=== PATIENT | female | born 1995 | race Caucasian/White ===

== ENCOUNTER 2021-01-27 01:10 | Emergency (ER) | payer SELFPAY ==
--- OUTSIDE RECORDS SUMMARY | 2021-01-27 01:13 | XMS REPORT | Continuity of Care Document ---
:1995 Author Organization [facility] t Address [address] [place] [address] Care Team Providers Name Role Phone Pcp, Does Not Have A Attending Clinician Problems This patient has no known problems. Allergies, Adverse Reactions, Alerts This patient has no known allergies or adverse reactions. Medications This patient has no known medications. Procedures This patient has no known procedures. Encounters Start End Encounter Admission Attending Care Care Encounter Source Date/Time Date/Time Type Type Clinicians Facility Department ID 2019-10-23 2019-10-23 Telephone PcpPAVEL [id number] 00:00:00 00:00:00 Patient Health [id number] Does Not [place] [id number] Have A Professio [phone] nal [address] 2019-10-22 2019-10-22 Nurse PcpDB [id number] 00:00:00 00:00:00 Triage Patient ASMITA [id number] Does Not [facility] [id number] Have A [phone] [id number] Results This patient has no known results.
--- NOTE | 2021-01-27 02:18 | EDPHYS ---
Physician Documentation [facility] Name: Rosangela Govea Age: 25 yrs Sex: Female : 1995 Arrival Date: 01/27/2021 Time: 01:11 Bed 13 Private MD: ED Physician Medhat Padron HPI: 01/27 02:08 This 25 yrs old Female presents to ER via Ambulatory with complaints of Fall kingsley Injury - THINKS SHE BROKE HER RIGHT ARM. 02:08 Details of fall: The patient fell from an upright position, while walking. Onset: The kingsley symptoms/episode began/occurred just prior to arrival. Associated injuries: The patient sustained right bicep and right tricep, decreased range of motion, painful injury. Severity of symptoms: At their worst the symptoms were mild, in the emergency department the symptoms are unchanged. The patient has not experienced similar symptoms in the past. 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 - Social history:: Smoking status: Patient reports the use of cigarette tobacco products, denies chronic smoking, but will smoke occasionally, Patient uses alcohol, on a daily basis. ROS: 02:10 Constitutional: Negative for fever, chills, and weight loss, Eyes: Negative for injury, kingsley pain, redness, and discharge, ENT: Negative for injury, pain, and discharge, Neck: Negative for injury, pain, and swelling, Cardiovascular: Negative for chest pain, palpitations, and edema, Respiratory: Negative for shortness of breath, cough, wheezing, and pleuritic chest pain, Abdomen/GI: Negative for abdominal pain, nausea, vomiting, diarrhea, and constipation, Back: Negative for injury and pain, : Negative for injury, bleeding, discharge, and swelling, Skin: Negative for injury, rash, and discoloration, Neuro: Negative for headache, weakness, numbness, tingling, and seizure, Psych: Negative for depression, anxiety, suicide ideation, homicidal ideation, and hallucinations, Allergy/Immunology: Negative for hives, rash, and allergies, Endocrine: Negative for neck swelling, polydipsia, polyuria, polyphagia, and marked weight changes, Hematologic/Lymphatic: Negative for swollen nodes, abnormal bleeding, and unusual bruising. 02:10 MS/extremity: Positive for injury or acute deformity, decreased range of motion, of the right bicep and right tricep. Exam: 02:10 Constitutional: This is a well developed, well nourished patient who is awake, alert, kingsley and in no acute distress. Head/Face: Normocephalic, atraumatic. Eyes: Pupils equal round and reactive to light, extra-ocular motions intact. Lids and lashes normal. Conjunctiva and sclera are non-icteric and not injected. Cornea within normal limits. Periorbital areas with no swelling, redness, or edema. ENT: Nares patent. No nasal discharge, no septal abnormalities noted. Tympanic membranes are normal and external auditory canals are clear. Oropharynx with no redness, swelling, or masses, exudates, or evidence of obstruction, uvula midline. Mucous membranes moist. Neck: Trachea midline, no thyromegaly or masses palpated, and no cervical lymphadenopathy. Supple, full range of motion without nuchal rigidity, or vertebral point tenderness. No Meningismus. Chest/axilla: Normal chest wall appearance and motion. Nontender with no deformity. No lesions are appreciated. Cardiovascular: Regular rate and rhythm with a normal S1 and S2. No gallops, murmurs, or rubs. Normal PMI, no JVD. No pulse deficits. Respiratory: Lungs have equal breath sounds bilaterally, clear to auscultation and percussion. No rales, rhonchi or wheezes noted. No increased work of breathing, no retractions or nasal flaring. Abdomen/GI: Soft, non-tender, with normal bowel sounds. No distension or tympany. No guarding or rebound. No evidence of tenderness throughout. Back: No spinal tenderness. No costovertebral tenderness. Full range of motion. Skin: Warm, dry with normal turgor. Normal color with no rashes, no lesions, and no evidence of cellulitis. Neuro: Awake and alert, GCS 15, oriented to person, place, time, and situation. Cranial nerves II-XII grossly intact. Motor strength 5/5 in all extremities. Sensory grossly intact. Cerebellar exam normal. Normal gait. Psych: Awake, alert, with orientation to person, place and time. Behavior, mood, and affect are within normal limits. 02:10 Musculoskeletal/extremity: Circulation is intact in all extremities. Sensation intact. Compartment Syndrome exam of affected extremity: is normal. DVT Exam: no swelling, no appreciated bluish discoloration, no erythema, no increased warmth, pain, tenderness. Vital Signs: 01:22 BP 128 / 83; Pulse 112; Resp 20; Temp 99.2(O); Pulse Ox 98% on R/A; Weight 74.84 kg bb (R); Height 5 ft. 4 in. (162.56 cm) (R); Pain 7/10; 01:22 Body Mass Index 28.32 (74.84 kg, 162.56 cm) bb MDM: 01:40 Patient medically screened. kingsley 02:12 Differential diagnosis: closed fracture, contusion, tendonitis. Differential diagnosis: kingsley contusion, fracture, multiple trauma, sprain, strain. Data reviewed: vital signs, nurses notes, radiologic studies, plain films. Data interpreted: quality assurance monitor chassis: rate is 112 beats/min, rhythm is regular, Pulse oximetry: on room air is 98 %. Test interpretation: by ED physician or midlevel provider: plain radiologic studies. Counseling: I had a detailed discussion with the patient and/or guardian regarding: the historical points, exam findings, and any diagnostic results supporting the discharge/admit diagnosis, lab results, radiology results, the need for outpatient follow up, for definitive care, a family practitioner, a orthopedic surgeon. 01/27 01:26 Order name: XRAY Humerus RIGHT; Complete Time: 14:40 01/27 02:08 Order name: Sling kingsley 01/27 02:08 Order name: Ice pack kingsley 01/27 02:14 Order name: Misc. Order: rings off right hand kingsley Administered Medications: No medications were administered Disposition Summary: 01/27/21 02:17 Discharge Ordered Location: Home kingsley Problem: new kingsley Symptoms: have improved kingsley Condition: Stable kingsley Diagnosis - Fall (on) (from) unspecified stairs and steps kingsley - Contusion of right upper arm kingsley Followup: kingsley - With: Private Physician - When: 2 - 3 days - Reason: Recheck today's complaints, Continuance of care, Re-evaluation by your physician Followup: kingsley - With: Kush Carpenter MD - When: 2 - 3 days - Reason: Recheck today's complaints, Re-evaluation by your physician Discharge Instructions: - Discharge Summary Sheet kingsley - Alcohol Intoxication kingsley - Contusion kingsley - Fall Prevention in the Home, Adult kingsley - Alcohol Intoxication, [id number] kingsley - Contusion, Fsdr-wq-Mcle kingsley Forms: - Medication Reconciliation Form kingsley - Thank You Letter kingsley - Antibiotic Education kingsley - Prescription Opioid Use kingsley Prescriptions: - Ibuprofen 600 mg Oral Tablet - take 1 tablet by ORAL route every 6 hours As needed take with food; 20 tablet; kingsley Refills: 0, Product Selection Permitted Signatures: Dispatcher [employer] EDMS Sheri Dotson, CROZER-C RAYMUNDO-Medhat Pérez MD MD cha Ballard, Brenda, RN RN bb
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
[2021-01-27 02:35] VITALS: BP 128/83; TEMP 99.2; O2SAT 98
--- NOTE | 2021-01-27 09:02 | RAD REPORT ---
EXAM DESCRIPTION: RAD - Humerus Right - 01/27/2021 2:25 am CLINICAL HISTORY: PAIN, fall COMPARISON: No comparisons FINDINGS: No fracture is identified. There is no dislocation or periosteal reaction noted. No foreig n body or other soft tissue abnormality. IMPRESSION: Negative right humerus examination.
== END 2021-01-27 02:30 | disposition home or self-care (01) ==
LOC: ER 01:10
DX: S40.021A Contusion of right upper arm, initial encounter (principal); W19.XXXA Unspecified fall, initial encounter; Y93.01 Activity, walking, marching and hiking; F17.210 Nicotine dependence, cigarettes, uncomplicated
CPT/HCPCS: 99283

== ENCOUNTER 2021-01-27 14:18 | Emergency (ER) | payer SELFPAY ==
--- OUTSIDE RECORDS SUMMARY | 2021-01-27 14:22 | XMS REPORT | Continuity of Care Document ---
:1995 Author Organization [facility] t Address [address] [place] [address] Care Team Providers Name Role Phone Pcp, [...] Facility Department ID 2019-10-23 2019-10-23 Telephone PcpPAVEL [id number] 00:00:00 00:00:00 Patient Health [id number] Does Not [place] [id number] Have A Professio [phone] nal [address] 2019-10-22 2019-10-22 Nurse PcpDB [id number] 00:00:00 00:00:00 Triage Patient ASMITA [id number] Does Not [facility] [id number] Have A [id number] [id number] Results This patient has no known results.
--- NOTE | 2021-01-27 15:42 | RAD REPORT ---
EXAM DESCRIPTION: RAD - Shoulder Right 2 View - 01/27/2021 3:34 pm CLINICAL HISTORY: Right shoulder pain FINDINGS: No fracture or dislocation is seen.
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
[2021-01-27 16:02] VITALS: BP 132/80; TEMP 99.5; O2SAT 99
== END 2021-01-27 15:57 | disposition home or self-care (01) ==
LOC: ER 14:18
DX: M25.511 Pain in right shoulder (principal)
CPT/HCPCS: 99283

== ENCOUNTER 2022-06-23 08:12 | Emergency (ER) | payer SELFPAY ==
[2022-06-23 09:16] LABS: Absolute Lymphocytes (CBC) 1.2 K/uL (0.7-4.9); Lymphocytes % 13.7 % (15.3-44.8); MCV 90.4 fL (80-100); MPV 9.1 fL (7.6-11.3); RBC Red Blood Cell Count 4.86 M/uL (3.86-4.86)
[2022-06-23 09:25] LABS: Protime INR 0.98
[2022-06-23 09:40] LABS: Bilirubin Total 0.9 mg/dL (0.2-1.0); Potassium 3.6 mmol/L (3.5-5.1); Protein, Total 8.1 g/dL (6.4-8.2); T3 Free 3.32 pg/mL (2.18-3.98); Thyroid Stimulating Hormone 1.57 uIU/mL (0.360-3.740)
--- NOTE | 2022-06-23 10:20 | ER ---
Nurse's Notes [facility] Name: Rosangela Govea Age: 26 yrs Sex: Female : 1995 Arrival Date: 06/23/2022 Time: 08:15 Bed 5 Private MD: Diagnosis: Other specified anxiety disorders;Tachycardia, unspecified;Contusion of knee Presentation: 06/23 08:31 Chief complaint: Patient states: she fell yesterday when skateboarding and injured her ap3 left knee. however during triage, the triage nurse found the patients heart rate to be in the 150's-160's. Patient states "my watch is always telling me how high my heart rate is, it is always in the 120's even if I'm sitting down.". Coronavirus screen: At this time, the client does not indicate any symptoms associated with coronavirus-19. Ebola Screen: No symptoms or risks identified at this time. Initial Sepsis Screen: Does the patient meet any 2 criteria? HR > 90 bpm. Does the patient have a suspected source of infection? No. Patient's initial sepsis screen is negative. Risk Assessment: Do you want to hurt yourself or someone else? Patient reports no desire to harm self or others. Onset of symptoms was June 22, 2022. 08:31 Method Of Arrival: Ambulatory ap3 08:31 Acuity: PAOLA 2 ap3 Triage Assessment: 08:35 Injury Description: fall while skateboarding. 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 - Social history:: Smoking status: Reported history of juuling and/or vaping. Screenin:35 Abuse screen: Denies threats or abuse. Nutritional screening: No deficits noted. ap3 Tuberculosis screening: No symptoms or risk factors identified. 09:14 Fall Risk None identified. ph Assessment: 08:33 General: Appears uncomfortable, Behavior is cooperative, appropriate for age, anxious. ap3 Pain: Complains of pain in left knee. Neuro: Level of Consciousness is awake, alert, obeys commands, Oriented to person, place, time, situation, Gait is steady. Cardiovascular: Patient's skin is warm and dry. Rhythm is sinus arrythmia. Respiratory: Airway is patent Respiratory effort is even, unlabored. Musculoskeletal: Swelling present in left knee. Vital Signs: 08:31 BP 123 / 99; Pulse 152; Resp 19; Temp 98.5(O); Pulse Ox 100% on R/A; ap3 09:15 BP 118 / 89; Pulse 91; Resp 18; Pulse Ox 98% on R/A; ph 10:41 BP 110 / 86; Pulse 74; Resp 15; Pulse Ox 100% ; jl7 ED Course: 08:15 Patient arrived in ED. as 08:17 Nel Hoffman [facility]-C [facility]. snw 08:17 Wes Lucia MD is Attending Physician. snw 08:21 Aura Herron, RN is Primary Nurse. ph 08:22 Patient has correct armband on for positive identification. Bed in low position. Call light in reach. Door closed. Noise minimized. 08:33 Triage completed. ap3 08:35 Arm band placed on right wrist. ap3 08:36 satellite project site monitor on. Pulse ox on. NIBP on. ap3 08:36 EKG done, by ED staff, reviewed by Nel SMALLWOOD. ap3 09:14 Initial lab(s) drawn, by nj, sent to lab. Inserted saline lock: 22 gauge in left ph antecubital area, using aseptic technique. Blood collected. 10:41 No provider procedures requiring assistance completed. IV discontinued, intact, jl7 bleeding controlled, No redness/swelling at site. Pressure dressing applied. Administered Medications: No medications were administered Medication: 09:14 VIS not applicable for this client. ph Outcome: 10:19 Discharge ordered by . snw 10:41 Discharged to home ambulatory, with significant other. jl7 10:41 Condition: stable 10:41 Discharge instructions given to patient, significant other, Instructed on discharge instructions, follow up and referral plans. medication usage, Demonstrated understanding of instructions, follow-up care, medications, Prescriptions given X 2. 10:42 Patient left the ED. jl7 Signatures: Nel Hoffman FNP-C SWIMMING POOL SERVICER-Csnw Kay Ingram as Aura Herron, [place] RN ph Jason Jerome RN RN jl7 Ciera Harrington, RN RN ap3
--- NOTE | 2022-06-23 10:20 | EDPHYS ---
Physician Documentation [facility] Name: Rosangela Govea Age: 26 yrs Sex: Female : 1995 Arrival Date: 06/23/2022 Time: 08:15 Bed 5 Private MD: ED Physician Wes Lucia HPI: 06/23 08:35 This 26 yrs old Female presents to ER via Ambulatory with complaints of Knee Injury. snw 08:35 The patient presents with an injury, pain, that is acute. The complaints affect the snw left knee. Context: The problem was sustained on a street or driveway, resulted from the patient falling, skating, the patient can fully bear weight, the patient is able to ambulate. Onset: The symptoms/episode began/occurred suddenly, yesterday. Associated signs and symptoms: The patient has no apparent associated signs or symptoms. Severity of symptoms: At their worst the symptoms were mild, moderate. It is unknown whether or not the patient has had similar symptoms in the past. The patient has not recently seen a physician. 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 - Social history:: Smoking status: Reported history of juuling and/or vaping. ROS: 08:34 Constitutional: Negative for fever, chills, and weight loss, Eyes: Negative for injury, snw pain, redness, and discharge, ENT: Negative for injury, pain, and discharge, Neck: Negative for injury, pain, and swelling, Cardiovascular: Negative for chest pain, palpitations, and edema, Respiratory: Negative for shortness of breath, cough, wheezing, and pleuritic chest pain, Abdomen/GI: Negative for abdominal pain, nausea, vomiting, diarrhea, and constipation, Back: Negative for injury and pain, : Negative for injury, bleeding, discharge, and swelling, Skin: Negative for injury, rash, and discoloration, Neuro: Negative for headache, weakness, numbness, tingling, and seizure, Psych: Negative for depression, anxiety, suicide ideation, homicidal ideation, and hallucinations. 08:34 MS/extremity: Positive for contusion, pain, of the left knee. Exam: 08:30 Constitutional: This is a well developed, well nourished patient who is awake, alert, snw and in no acute distress. Head/Face: Normocephalic, atraumatic. Eyes: Pupils equal round and reactive to light, extra-ocular motions intact. Lids and lashes normal. Conjunctiva and sclera are non-icteric and not injected. Cornea within normal limits. Periorbital areas with no swelling, redness, or edema. ENT: Nares patent. No nasal discharge, no septal abnormalities noted. Tympanic membranes are normal and external auditory canals are clear. Oropharynx with no redness, swelling, or masses, exudates, or evidence of obstruction, uvula midline. Mucous membranes moist. Neck: Trachea midline, no thyromegaly or masses palpated, and no cervical lymphadenopathy. Supple, full range of motion without nuchal rigidity, or vertebral point tenderness. No Meningismus. Chest/axilla: Normal chest wall appearance and motion. Nontender with no deformity. No lesions are appreciated. 08:30 Respiratory: Lungs have equal breath sounds bilaterally, clear to auscultation and percussion. No rales, rhonchi or wheezes noted. No increased work of breathing, no retractions or nasal flaring. Abdomen/GI: Soft, non-tender, with normal bowel sounds. No distension or tympany. No guarding or rebound. No evidence of tenderness throughout. Back: No spinal tenderness. No costovertebral tenderness. Full range of motion. 08:30 Cardiovascular: Rate: tachycardic, Rhythm: regular, Heart sounds: normal. 08:30 Skin: Appearance: ecchymosis, noted on the, left quadriceps, of the right quadriceps and left quadriceps. Vital Signs: 08:31 BP 123 / 99; Pulse 152; Resp 19; Temp 98.5(O); Pulse Ox 100% on R/A; ap3 09:15 BP 118 / 89; Pulse 91; Resp 18; Pulse Ox 98% on R/A; ph 10:41 BP 110 / 86; Pulse 74; Resp 15; Pulse Ox 100% ; jl7 MDM: 08:24 Patient medically screened. snw 10:21 Data reviewed: vital signs, nurses notes. Data interpreted: Pulse oximetry: on room air snw is 98 %. Interpretation: normal. Counseling: I had a detailed discussion with the patient and/or guardian regarding: the historical points, exam findings, and any diagnostic results supporting the discharge/admit diagnosis, lab results, to return to the emergency department if symptoms worsen or persist or if there are any questions or concerns that arise at home. Special discussion: Based on the history and exam findings, there is no indication for further emergent testing or inpatient evaluation. I discussed with the patient/guardian the need to see the orthopedic surgeon for further evaluation of the symptoms. I discussed with the patient/guardian the need to see the primary care provider for further evaluation of the symptoms. 06/23 08:27 Order name: TSH; Complete Time: : snw 06/23 08:27 Order name: T3 Free; Complete Time: : snw 06/23 08:27 Order name: CBC with Diff; Complete Time: 09:21 snw 06/23 08:27 Order name: CMP; Complete Time: : snw 06/23 08:27 Order name: Ptt, Activated; Complete Time: : snw 06/23 08:27 Order name: PT-INR; Complete Time: : snw EC:30 Rate is 144 beats/min. Rhythm is regular. QRS [place] is Normal. Clinical impression: snw Sinus tachycardia. Administered Medications: No medications were administered Disposition: 13:28 Co-signature as Attending Physician, Wes Lucia MD. rn Disposition Summary: 06/23/22 10:19 Discharge Ordered Location: Home snw Condition: Stable snw Diagnosis - Other specified anxiety disorders snw - Tachycardia, unspecified snw - Contusion of knee snw Followup: snw - With: Emergency Department - When: As needed - Reason: Worsening of condition Followup: snw - With: Private Physician - When: 2 - 3 days - Reason: Recheck today's complaints, Continuance of care, Re-evaluation by your physician Discharge Instructions: - Discharge Summary Sheet snw - Contusion snw - Acute Knee Pain, Adult snw - Sinus Tachycardia snw - Smoking Tobacco Information, Adult snw - Smoking and Musculoskeletal Health snw - Managing Anxiety, Adult snw Forms: - Medication Reconciliation Form snw - Thank You Letter snw - Antibiotic Education snw - Prescription Opioid Use snw Prescriptions: - Mobic 7.5 mg Oral Tablet - take 1 tablet by ORAL route once daily take with food; 20 tablet; Refills: 0, snw Product Selection Permitted - Propranolol 20 mg Oral Tablet - take 1 tablet by ORAL route every 8 hours; 100 tablet; Refills: 0, Product snw Selection Permitted Signatures: Dispatcher [employer] EDNel Melendez, ELECTRONIC SCIENCE TEACHER-C ELECTRONIC SCIENCE TEACHER-Csnw Wes Lucia MD MD rn Hall, Patricia RN RN Jason Doll RN RN jl7 Ciera Harrington RN RN ap3
[2022-06-23 11:21] VITALS: TEMP 98.5
[2022-06-23 11:50] VITALS: BP 110/86; O2SAT 100
--- NOTE | 2022-06-27 15:08 | EKG ---
Test Date: 2022-06-23 Test Time: 08:26:04 Painter Ordnance: ALP MEASUREMENT RESULTS: Intervals: Rate: 144 LA: 140 QRSD: 68 QT: 268 QTc: 414 [place]: P: 61 LA: 140 QRS: 73 T: 44 INTERPRETIVE STATEMENTS: Sinus tachycardia Possible Left atrial enlargement Borderline ECG No previous ECG available for comparison Electronically Signed On 06-27-22 14:59:40 BOMB SQUAD COMMANDER by Cabrera King
== END 2022-06-23 10:42 | disposition home or self-care (01) ==
LOC: ER 08:12
DX: S80.02XA Contusion of left knee, initial encounter (principal); R00.0 Tachycardia, unspecified; F41.8 Other specified anxiety disorders
CPT/HCPCS: 36415; 80053; 84443; 84481; 85025; 85610; 85730; 93005; 99284

== ENCOUNTER 2024-04-22 02:43 | Emergency (ER) | payer SELFPAY ==
[2024-04-22 03:39] LABS: MCH 29.6 pg (27.0-35.0); MCHC 33.4 g/dL (32.0-36.0); PT Prothrombin Time 9.9 SECONDS (9.4-12.5); Protime INR 0.88
[2024-04-22 03:40] LABS: PTT, Activated Partial Thromb 30.9 SECONDS (24.3-36.9)
[2024-04-22 03:41] LABS: Specific Gravity 1.006 (1.005-1.030)
[2024-04-22 03:43] LABS: Absolute Basophils 0.1 K/uL (0-0.5); Absolute Eosinophils 0.2 K/uL (0-0.5); Absolute Lymphocytes (CBC) 2.8 K/uL (0.7-4.9); Absolute Monocytes 0.4 K/uL (0.1-1.3); Basophils % 0.9 % (0-1.3); Eosinophils % 3.8 % (0-4.4); Hematocrit 41.9 % (36.0-45.0); Lymphocytes % 42.8 % (15.3-44.8); MCV 88.6 fL (80-100); MPV 9.3 fL (7.6-11.3); Monocytes % 5.5 % (3.3-12.3); Nucleated Red Blood Cells % 0.1 % (0-0); Platelets 282 thou/uL (152-406); RBC Red Blood Cell Count 4.73 M/uL (3.86-4.86); Red Cell Distribution Width 13.7 % (12.1-15.2)
[2024-04-22 03:45] LABS: Barbiturates NEGATIVE (NEGATIVE); Benzodiazepines NEGATIVE (NEGATIVE); Cocaine NEGATIVE (NEGATIVE); METHAMPHETAM NEGATIVE (NEGATIVE); Methadone NEGATIVE (NEGATIVE); Opiates NEGATIVE (NEGATIVE); Phencyclidine NEGATIVE (NEGATIVE); Specific Gravity 1.006 (1.005-1.030); Sqamous Epithelial <5 /HPF (None Seen); THC Cannibis POSITIVE (NEGATIVE); Urine Bacteria <20 /HPF (<20); Urine Bilirubin NEGATIVE (Negative); Urine Blood Trace (Negative); Urine Clarity Turbid (Clear); Urine Color Colorless (Yellow); Urine Culture Reflex Order NOT NEEDED; Urine Glucose NEGATIVE (Negative); Urine Ketones NEGATIVE (Negative); Urine Microscopic Reflex YN ORDER UMIC; Urine Nitrite NEGATIVE (Negative); Urine Protein NEGATIVE (Negative); Urine RBC <5 /HPF (None Seen); Urine Urobilinogen Normal (Normal); Urine WBC <5 /HPF (<5); Urine pH 5.5 (5.0-7.0)
[2024-04-22] MEDS ORDERED: KETOROLAC 30 MG/ML INJ ONE (03:46)
[2024-04-22] MEDS ORDERED: DIAZEPAM 10 MG/2 ML INJ SYRINGE ONE (03:46)
[2024-04-22 03:57] LABS: ALT/SGPT 35 U/L (13-56); AST/SGOT 20 U/L (15-37); Albumin 3.9 g/dL (3.4-5.0); Albumin/Globulin Ratio 0.9 (1.1-1.8); Alkaline Phosphatase 95 U/L (45-117); Anion Gap 11.5 mEq/L (5.0-15.0); BUN Blood Urea Nitrogen 10 mg/dL (7-18); Bicarbonate 22 mEq/L (21-32); Bilirubin Total 0.4 mg/dL (0.2-1.0); Globulin 4.4 g/dL (2.3-3.5); Glomerular Filtration Rate 122 ml/min (=/>90); Glucose Level 91 mg/dL (74-106); Potassium 3.5 mEq/L (3.5-5.1); Protein, Total 8.3 g/dL (6.4-8.2); Sodium Level 140 mEq/L (136-145)
[2024-04-22 03:58] LABS: Bilirubin Direct < 0.2 mg/dL (0-0.2); Bilirubin Indirect, Calculated 0.2 mg/dL (0.2-0.8)
--- NOTE | 2024-04-22 04:16 | EDPHYS ---
Physician Documentation [facility] Name: Rosangela Govea Age: 28 yrs Sex: Female : 1995 Arrival Date: 04/22/2024 Time: 02:43 Bed 17 Private MD: ED Physician Medhat Padron HPI: 04/22 03:46 This 28 yrs old Female presents to ER via EMS with complaints of Suicidal Ideation. ec2 03:46 Patient arrives today for evaluation of suicidal ideation. Reports that she has been ec2 having general helplessness, states that she is having issues coping with some problems, states she has nobody to turn to, states that she subsequently is looking for help. Reports no suicidal action, states that she has previously tried to harm herself however would not disclose how. . OFFICE CLEANER: 03:05 Not cp4 Historical: - Allergies: 03:05 No Known Allergies; cp4 - PMHx: 03:05 heart arrhythmia; cp4 - PSHx: 03:05 section; cp4 - Immunization history:: Adult Immunizations up to date. - Infectious Disease History:: Denies. - Social history:: Smoking status: Patient reports the use of cigarette tobacco products, smokes one-half pack cigarettes per day. ROS: 03:46 Constitutional: as per hpi ec2 Exam: 03:46 Constitutional: GEN: NAD Head: atraumatic Eyes: EOMI Ears: External ears are ec2 normal. CV: regular rate LUNGS: no respiratory distress ABD: non-distended SKIN: no evidence of rashes MSK: no evidence of trauma. Psych: Cooperative individual who is tearful who endorses suicidality without plan. Vital Signs: 03:02 BP 147 / 90; Pulse 126; Resp 22; Temp 97.8; Pulse Ox 96% ; Weight 86.18 kg; Height 5 cp4 ft. 3 in. ; Pain 0/10; 04:19 BP 129 / 86; Pulse 82; Resp 18; Pulse Ox 100% ; cp4 10:53 BP 122 / 82; Pulse 85; Resp 19 S; Temp 97.9(TE); Pulse Ox 100% on R/A; Pain 0/10; kc6 03:02 Body Mass Index 33.66 (86.18 kg, 160.02 cm) cp4 03:02 Pain Scale: Adult cp4 10:53 Pain Scale: Adult kc6 MDM: 02:48 Patient medically screened. ec2 03:45 ED course: EKG independently reviewed and interpreted by me, shows normal sinus rhythm, ec2 rate of 92, no acute ST segment elevations, intervals are nonactionable.. 03:46 Data reviewed: vital signs. ED course: Patient arrives today for evaluation of suicidal ec2 thoughts. Examination remarkable for well-appearing nontoxic and appears otherwise in no acute distress with a reassuring examination. Will obtain psych workup. . 04:11 ED course: Labs are nonactionable.. ec2 04:15 ED course: Patient medically clear and appropriate for transfer.. ec2 10:43 Differential diagnosis: drug withdrawal. acute psychotic break, depression, psychosis [place] secondary to non-compliance. Consideration of Admission/Observation Escalation of care including admission/observation considered. I considered the following discharge prescriptions or medication management in the emergency department Medications were administered in the Emergency Department. See MAR. Care significantly affected by the following chronic conditions: heart arrythmia. ED course: not suicidal , will follow up , has resources, plan, psych team has plan in place , pt agrees to return to the er if anything changes. 04/22 02:48 Order name: Acetaminophen; Complete Time: 04: ec2 04/22 02:48 Order name: Basic Metabolic Panel; Complete Time: 04: ec2 04/22 02:48 Order name: CBC with Diff; Complete Time: 04: ec2 04/22 02:48 Order name: ETOH Level; Complete Time: 04:11 ec2 04/22 02:48 Order name: Hepatic Function; Complete Time: 04: ec2 04/22 02:48 Order name: PT-INR; Complete Time: 04: ec2 04/22 02:48 Order name: Test, Urine; Complete Time: 04:11 ec2 04/22 02:48 Order name: Ptt, Activated; Complete Time: 04: ec2 04/22 02:48 Order name: Salicylate; Complete Time: 04: ec2 04/22 02:48 Order name: Urinalysis w/ reflexes; Complete Time: 04:11 ec2 04/22 02:48 Order name: Urine Drug Screen; Complete Time: 04:11 ec2 04/22 04:54 Order name: Ethanol; Complete Time: 06:13 ec2 04/22 02:48 Order name: EKG; Complete Time: 02:49 ec2 04/22 02:48 Order name: EKG - Nurse/Tech; Complete Time: 03:45 ec2 04/22 02:48 Order name: IV Saline Lock; Complete Time: 03:32 ec2 04/22 02:48 Order name: Labs collected and sent; Complete Time: 03:32 ec2 04/22 02:48 Order name: Suicide Precautions; Complete Time: 03:32 ec2 04/22 02:48 Order name: Suicide Screening ([place]); Complete Time: 03:32 ec2 04/22 04:15 Order name: Vital Signs; Complete Time: 04:19 ec2 Administered Medications: 03:53 Drug: Diazepam IVP 5 mg IVP once Route: IVP; Site: left antecubital; cp4 04:20 Follow up: Response: No adverse reaction al5 03:53 Drug: Ketorolac IVP 15 mg IVP once Route: IVP; Site: left antecubital; cp4 04:20 Follow up: Response: No adverse reaction; Pain is decreased al5 04:25 Drug: Acetaminophen PO 1000 mg PO once Route: PO; cp4 04:52 Follow up: Response: No adverse reaction; Pain is decreased al5 04:25 Drug: Droperidol IVP 0.625 mg IVP once Route: IVP; Site: left antecubital; cp4 04:52 Follow up: Response: No adverse reaction al5 Disposition Summary: 04/22/24 10:43 Discharge Ordered Notes: Location: Home [place] Problem: new(04/22/24 10:43) [place] Symptoms: have improved(04/22/24 10:43) [place] Condition: Stable(04/22/24 10:43) [place] Diagnosis - Suicidal ideations - resolved(04/22/24 10:43) [place] - Major depressive disorder, single episode, moderate [place] Followup: [place] - With: Private Physician - When: 2 - 3 days - Reason: Recheck today's complaints, Continuance of care, Re-evaluation by your physician Followup: [place] - With: Ben Baker MD - When: 2 - 3 days - Reason: Recheck today's complaints, Continuance of care, Re-evaluation by your physician Discharge Instructions: - Discharge Summary Sheet [place] - Suicidal Feelings: How to Help Yourself [place] - Helping Someone Who is Suicidal [place] - Major Depressive Disorder, Adult, Gpum-pd-Clyc [place] - Major Depressive Disorder, Adult [place] - Supporting Someone With Depression [place] - Managing Depression, Adult [place] Forms: - Medication Reconciliation Form [place] - Antibiotic Education [place] - Prescription Opioid Use [place] - Patient Portal Instructions [place] - Leadership Thank You Letter [place] Signatures: Dispatcher [employer] EDMedhat Og MD MD cha Corral, Edwin, MD MD 2 Eloisa Del Toro 4 Ciera Bianchi RN al5 Corrections: (The following items were deleted from the chart) 02:49 02:49 ACETAMINOPHEN+C.LAB.BRZ ordered. EDMS EDMS 02:49 02:49 BASIC METABOLIC PANEL+C.LAB.BRZ ordered. EDMS EDMS 02:49 02:49 CBC+H.LAB.BRZ ordered. EDMS EDMS 02:49 02:49 ETHANOL+C.LAB.BRZ ordered. EDMS EDMS 02:49 02:49 HEPATIC FUNCTION+C.LAB.BRZ ordered. EDMS EDMS 02:49 02:49 PROTIME (+INR)+COAG.LAB.BRZ ordered. EDMS EDMS 02:49 02:49 Test, Urine+UC.LAB.BRZ ordered. EDMS EDMS 02:49 02:49 PTT, ACTIVATED+COAG.LAB.BRZ ordered. EDMS EDMS 02:49 02:49 SALICYLATE+C.LAB.BRZ ordered. EDMS EDMS 02:49 02:49 Urinalysis+U.LAB.BRZ ordered. EDMS EDMS 02:49 02:49 URINE DRUG SCREEN+UC.LAB.BRZ ordered. EDMS EDMS 10: 04:15 transferring doc ec2 [place] 10: 04:15 Psych Facility ec2 [facility] 10: 04:15 Higher level of care ec2 [place] 10: 04:15 Stable ec2 [place] 10: 04:15 an acute exacerbation ec2 [place] 10: 04:15 are unchanged ec2 [place] 10: 04:15 Suicidal ideations ec2 [place]
--- NOTE | 2024-04-22 04:16 | ER ---
Nurse's Notes [facility] Name: Rosangela Govea Age: 28 yrs Sex: Female : 1995 Arrival Date: 04/22/2024 Time: 02:43 Bed 17 Private MD: Diagnosis: Suicidal ideations-resolved;Major depressive disorder, single episode, moderate Presentation: 04/22 03:02 Chief complaint: EMS states: patient has feelings of impeding doom and doesn't want to cp4 be here anymore. States" I don't want to but I don't want to be here.". Coronavirus screen: Client denies travel out of the [place] in the last 14 days. At this time, the client does not indicate any symptoms associated with coronavirus-19. Ebola Screen: Patient negative for fever greater than or equal to 101.5 degrees Fahrenheit, and additional compatible Ebola Virus Disease symptoms Patient denies exposure to infectious person. Patient denies travel to an Ebola-affected area in the 21 days before illness onset. No symptoms or risks identified at this time. Initial Sepsis Screen: Does the patient meet any 2 criteria? RR > 20 per min. HR > 90 bpm. Does the patient have a suspected source of infection? No. Patient's initial sepsis screen is negative. Risk Assessment: Do you want to hurt yourself or someone else? Patient reports desire/thoughts of hurting themselves or someone else. Provider notified. Onset of symptoms was April 22, 2024. 03:02 Method Of Arrival: EMS: [facility] 4 03:02 Acuity: PAOLA 2 cp4 Triage Assessment: 03:05 General: Appears in no apparent distress. comfortable, Behavior is cooperative, cp4 appropriate for age, crying. Pain: Denies pain. EENT: No signs and/or symptoms were reported regarding the EENT system. Neuro: Level of Consciousness is awake, alert, obeys commands, Oriented to person, place, time, situation. Cardiovascular: Patient's skin is warm and dry. Respiratory: Airway is patent Respiratory effort is even, unlabored. GI: No signs and/or symptoms were reported involving the gastrointestinal system. : No signs and/or symptoms were reported regarding the genitourinary system. Derm: No signs and/or symptoms reported regarding the dermatologic system. Musculoskeletal: No signs and/or symptoms reported regarding the musculoskeletal system. HOUSESMITH: 03:05 Not cp4 Historical: - Allergies: 03:05 No Known Allergies; cp4 - PMHx: 03:05 heart arrhythmia; cp4 - PSHx: 03:05 section; cp4 - Immunization history:: Adult Immunizations up to date. - Infectious Disease History:: Denies. - Social history:: Smoking status: Patient reports the use of cigarette tobacco products, smokes one-half pack cigarettes per day. Screenin:07 [facility] ED Fall Risk Assessment (Adult) History of falling in the last 3 months, cp4 including since admission No falls in past 3 months (0 pts) Confusion or Disorientation No (0 pts) Intoxicated or Sedated No (0 pts) Impaired Gait No (0 pts) Mobility Assist Device Used No (0 pt) Altered Elimination No (0 pt) Score/Fall Risk Level 0 - 2 = Low Risk Oriented to surroundings, Maintained a safe environment, Assessed \\T\\ reinforced patient's understanding of fall precautions, Hourly rounding (assess needs \\T\\ fall precautionary measures) done. Abuse screen: Denies threats or abuse. Nutritional screening: No deficits noted. Tuberculosis screening: No symptoms or risk factors identified. Assessment: 03:07 Reassessment: No changes from previously documented assessment. cp4 04:00 Reassessment: Patient appears in no apparent distress at this time. Patient and/or al5 family updated on plan of care and expected duration. Pain level reassessed. Patient is alert, oriented x 3, equal unlabored respirations, skin warm/dry/pink. 05:00 Reassessment: Patient appears in no apparent distress at this time. Patient and/or al5 family updated on plan of care and expected duration. Pain level reassessed. Patient is alert, oriented x 3, equal unlabored respirations, skin warm/dry/pink. 06:00 Reassessment: Patient appears in no apparent distress at this time. Patient and/or al5 family updated on plan of care and expected duration. Pain level reassessed. Patient is alert, oriented x 3, equal unlabored respirations, skin warm/dry/pink. 07:05 Reassessment: pt with eyes closed, respirations even and unlabored. easy to arouse. kc6 08:05 Reassessment: No changes from previously documented assessment. kc6 08:11 Reassessment: Larissa RN with [facility] called stating she is in [place] at the ss moment and will be here to assess patient in 1 hour. 09:05 Reassessment: No changes from previously documented assessment. kc6 09:50 Reassessment: Latonia Barboza at bedside evaluating pt at this time. kc6 Psych: 03:30 [place] Suicide Severity Screening: In the past month, have you wished you were cp4 or wished you could go to sleep and not wake up? Patient responds "yes." "In the past month, have you actually had any thoughts of killing yourself?" Patient responds "no." "In your lifetime, have you ever done anything, started to do anything, or prepared to do anything to end your life?" Patient responds "no.". Subjective: Patient's mood is sad, Delusions are denied, Hallucinations are denied Having thoughts of suicide. Denies suicidal plan. Objective: Patient is cooperative, Speech is normal, Affect is appropriate. Interventions: Removed personal items and placed in bag. Patient placed in hospital gown. Searched person for dangerous items. Urine collected and sent for urine drug test. Belonging list filled out. Safety Checks: Personal items have been removed. Door is open. No visitors are present at this time. Pt denies substance abuse. Commitment: Patient will be a voluntary commitment. Vital Signs: 03:02 BP 147 / 90; Pulse 126; Resp 22; Temp 97.8; Pulse Ox 96% ; Weight 86.18 kg; Height 5 cp4 ft. 3 in. ; Pain 0/10; 04:19 BP 129 / 86; Pulse 82; Resp 18; Pulse Ox 100% ; cp4 10:53 BP 122 / 82; Pulse 85; Resp 19 S; Temp 97.9(TE); Pulse Ox 100% on R/A; Pain 0/10; kc6 03:02 Body Mass Index 33.66 (86.18 kg, 160.02 cm) cp4 03:02 Pain Scale: Adult cp4 10:53 Pain Scale: Adult kc6 ED Course: 02:48 Patient arrived in ED. ec2 02:48 Jose Armando López MD is Attending Physician. ec2 03:00 Safety checks: Items removed: yes. Door open/sign placed on door: yes. Family/friend ty present: no. Sitter present: Yes. Patient has correct armband on for positive identification. Placed in gown. Bed in low position. Side rails up X 1. Valuables inventory done. Locked in safe. PHONE LEFT WITH PATIENT, PATIENT VISIBLY IN DISTRESS AND BECOMING UPSET WHEN INFORMED OF PHONE BEING TAKEN AWAY. Noise minimized. Lights dimmed. Warm blanket given. Pillow given. Head of bed lowered. Diet: Patient given water. Tolerated well. 03:01 Eloisa Del Toro is Primary Nurse. cp4 03:05 Triage completed. cp4 03:05 Arm band placed on right wrist. Patient placed in an exam room, on a stretcher. cp4 03:07 Bed in low position. Side rails up X2. Provided Education on: suicidal thoughts. cp4 03:07 No provider procedures requiring assistance completed. cp4 03:20 Inserted saline lock: 20 gauge in left antecubital area, using aseptic technique. Blood ty collected. Flushed with 10 mL NS. 03:45 Acetaminophen Sent. ha1 03:45 Basic Metabolic Panel Sent. ha1 03:45 ETOH Level Sent. ty 03:45 Hepatic Function Sent. ha1 03:45 Salicylate Sent. ha1 04:43 initiated screening with FRM Study Course spoke with [place]. vk 04:46 [employer] called back advised that ETOH level was to high call back when under 200. vk 07:05 Safety Checks: Personal items have been removed. The door is not opened, nor is patient kc6 placed in a hallway bed/chair. There are no family/friend visitors at this time Sitter present at this time. 07:05 Report received from Shiela Del Toro RN. Door closed. Noise minimized. Visitors kc6 limited. Lights dimmed. Moved to private room. Warm blanket given. Pillow given. Patient is placed in psych hold. 07:05 Patient maintains SpO2 saturation greater than 95% on room air. kc6 10:22 IV discontinued, intact, bleeding controlled, No redness/swelling at site. Pressure kc6 dressing applied. 10:37 Attending Physician role handed off by Jose Armando López MD cha 10:37 Medhat Padron MD is Attending Physician. [place] 10:39 Ben Baker MD is Referral Physician. [facility] Administered Medications: 03:53 Drug: Diazepam IVP 5 mg IVP once Route: IVP; Site: left antecubital; cp4 04:20 Follow up: Response: No adverse reaction al5 03:53 Drug: Ketorolac IVP 15 mg IVP once Route: IVP; Site: left antecubital; cp4 04:20 Follow up: Response: No adverse reaction; Pain is decreased al5 04:25 Drug: Acetaminophen PO 1000 mg PO once Route: PO; cp4 04:52 Follow up: Response: No adverse reaction; Pain is decreased al5 04:25 Drug: Droperidol IVP 0.625 mg IVP once Route: IVP; Site: left antecubital; cp4 04:52 Follow up: Response: No adverse reaction al5 Medication: 03:07 VIS not applicable for this client. cp4 Outcome: 04:15 ER care complete, transfer ordered by . ec2 10:43 Discharge ordered by . kingsley 10:53 Discharged to home ambulatory, with family, 6 10:53 Condition: good 10:53 Discharge instructions given to patient, Instructed on discharge instructions, follow up and referral plans. Demonstrated understanding of instructions, follow-up care, 10:53 Patient left the ED. kc6 Signatures: Medhat Padron MD MD cha Blanchard, Shelby, [place] JETER ss Negra Hardwick RN RN ha1 Leonor Aiken RN RN kc6 Jose Armando López MD MD ec2 Potter, Christina cp4 Samantha Damon Tylor ty Ciera Bianchi RN RN al5 Corrections: (The following items were deleted from the chart) 04:35 04:30 Safety checks: Items removed: yes. Door open/sign placed on door: yes. ty Family/friend present: no. Sitter present: Yes. ty 04:35 04:30 Patient has correct armband on for positive identification. Placed in gown. Bed ty in low position. Side rails up X 1. Valuables inventory done. Locked in safe. PHONE LEFT WITH PATIENT, PATIENT VISIBLY IN DISTRESS AND BECOMING UPSET WHEN INFORMED OF PHONE BEING TAKEN AWAY. ty 04:35 04:30 Noise minimized. Lights dimmed. Warm blanket given. Pillow given. Head of bed ty lowered. ty :35 04:30 Diet: Patient given water. Tolerated well ty ty 05:59 03:45 ETHANOL+C.LAB.DEBBIEZ drawn and sent. ha1 ty 10:22 07:05 Reassessment: pt with eyes closed, respirations even and unlabored. easy to kc6 arouse. kc6
[2024-04-22] MEDS ORDERED: droPERidol 5 MG/2 ML VIAL ONE (04:21)
[2024-04-22] MEDS ORDERED: ACETAMINOPHEN 500 MG TAB ONE (04:21)
[2024-04-22 10:59] VITALS: O2SAT 100
[2024-04-22 11:01] VITALS: BP 122/82; TEMP 97.9
--- NOTE | 2024-04-22 11:51 | EKG ---
Test Date: 2024-04-22 Test Time: 03:43:09 Digital Measurement Advisor: MICHAEL MEASUREMENT RESULTS: Intervals: Rate: 92 [place]: 186 QRSD: 74 QT: 346 QTc: 427 [place]: P: 59 [place]: 186 QRS: 67 T: 43 INTERPRETIVE STATEMENTS: Normal sinus rhythm Normal ECG Compared to ECG 07/19/2023 19:16:41 No significant changes Electronically Signed On 04-22-24 11:50:27 CDT by Nolan Mims
== END 2024-04-22 10:53 | disposition home or self-care (01) ==
LOC: ER 02:43
DX: R45.851 Suicidal ideations (principal); F32.1 Major depressive disorder, single episode, moderate
CPT/HCPCS: 36415; 80048; 80076; 80143; 80179; 80307; 81001; 81025; 82077; 85025; 85610; 85730; 93005; 96374; 96375; 99285; J1790; J3360

== ENCOUNTER 2025-04-15 12:47 | Emergency (ER) | payer SELFPAY ==
[2025-04-15 14:52] LABS: Influenza A Ag Negative; Influenza B Ag Negative; SARS-CoV-2 Antigen Rapid Res Negative (Negative)
--- NOTE | 2025-04-15 15:18 | ER ---
Nurse's Notes [facility] Name: Rosangela Govea Age: 29 yrs Sex: Female : 1995 Arrival Date: 04/15/2025 Time: 12:47 Bed 12 Private MD: Diagnosis: Acute upper respiratory infection, unspecified Presentation: 04/15 12:57 Chief complaint: Patient states: Fatigue, body aches and congestion that began ss yesterday. Pt reports symptoms still persist, but have improved. Pt states, "I just want to get tested for COVID. I took an at home test, and it came out negative.". Coronavirus screen: Client denies travel out of the [place] in the last 14 days. Ebola Screen: Patient denies exposure to infectious person. Patient denies travel to an Ebola-affected area in the 21 days before illness onset. Initial Sepsis Screen: Does the patient meet any 2 criteria? No. Patient's initial sepsis screen is negative. Does the patient have a suspected source of infection? No. Patient's initial sepsis screen is negative. Risk Assessment: Do you want to hurt yourself or someone else? Patient reports no desire to harm self or others. Onset of symptoms was April 14, 2025. 12:57 Method Of Arrival: Ambulatory ss 12:57 Acuity: PAOLA 4 ss [employer] K[employer]: 12:59 LMP 04/07/2025, unknown ss Historical: - Allergies: 12:59 No Known Allergies; ss - Home Meds: 12:59 None [Active]; ss - PMHx: 12:59 heart arrhythmia; ss - PSHx: 12:59 section; ss - Immunization history:: Adult Immunizations unknown. - Infectious Disease History:: Denies. - Social history:: Smoking status: Patient/guardian denies using tobacco, Stopped _ months ago .25. Screenin:41 [facility] ED Fall Risk Assessment (Adult) History of falling in the last 3 months, af3 including since admission No falls in past 3 months (0 pts) Confusion or Disorientation No (0 pts) Intoxicated or Sedated No (0 pts) Impaired Gait No (0 pts) Mobility Assist Device Used No (0 pt) Altered Elimination No (0 pt) Score/Fall Risk Level 0 - 2 = Low Risk Oriented to surroundings, Maintained a safe environment, Educated pt \\T\\ family on fall prevention, incl call for assistance when getting out of bed. Abuse screen: Denies threats or abuse. Denies injuries from another. Nutritional screening: No deficits noted. Tuberculosis screening: No symptoms or risk factors identified. Assessment: 13:41 General: Appears in no apparent distress. comfortable, well groomed, well developed, af3 Behavior is calm, cooperative, appropriate for age. Pain: Denies pain. Neuro: Level of Consciousness is awake, alert, obeys commands, Oriented to person, place, time, situation, Appropriate for age. Cardiovascular: Patient's skin is warm and dry. Respiratory: Airway is patent Respiratory effort is even, unlabored, Respiratory pattern is regular, symmetrical. 14:43 Reassessment: Patient appears in no apparent distress at this time. No changes from af3 previously documented assessment. Patient and/or family updated on plan of care and expected duration. Pain level reassessed. Patient is alert, oriented x 3, equal unlabored respirations, skin warm/dry/pink. Vital Signs: 12:57 Weight 89.81 kg; Height 5 ft. 4 in. ; Pain 2/10; ss 13:03 BP 136 / 83; Pulse 88; Resp 14; Temp 97.5(TE); Pulse Ox 100% ; ss 12:57 Body Mass Index 33.99 (89.81 kg, 162.56 cm) ss 12:57 Pain Scale: Adult ss ED Course: 12:52 Patient arrived in ED. al6 12:55 Enoch Marroquin DO is Attending Physician. ms3 12:59 Triage completed. ss 12:59 Arm band placed on right wrist. ss 13:40 Marichuy King, [place] is Primary Nurse. af3 13:41 Patient has correct armband on for positive identification. Bed in low position. Call af3 light in reach. Provided Education on: call light use . 13:41 No provider procedures requiring assistance completed. af3 15:16 aCio Pillai DO is Referral Physician. ms3 15:26 Patient did not have IV access during this emergency room visit. ap3 Administered Medications: No medications were administered Medication: 13:41 VIS not applicable for this client. af3 Outcome: 15:18 Discharge ordered by MD. ms3 15:25 Discharged to home ambulatory, with family, ap3 15:25 Condition: good 15:25 Discharge instructions given to patient, family, Instructed on discharge instructions, follow up and referral plans. medication usage, Demonstrated understanding of instructions, follow-up care, medications, Prescriptions given X 2, 15:26 Patient left the ED. ap3 Signatures: Lupe Cameron, RN RN ss Ciera Harrington RN RN ap3 Enoch Marroquin DO DO ms3 Marichuy King RN RN af3 Esther Ruth6
--- NOTE | 2025-04-15 15:18 | EDPHYS ---
Physician Documentation [facility] Name: Rosangela Govea Age: 29 yrs Sex: Female : 1995 Arrival Date: 04/15/2025 Time: 12:47 Bed 12 Private MD: ED Physician Enoch Marroquin HPI: 04/15 18:10 This 29 yrs old Female presents to ER via Ambulatory with complaints of expose to covid.ms3 18:10 29-year-old female with past medical history of heart arrhythmia [place] [facility] [place] to [place]. Patient states she has had cough, congestion. Patient denies fevers or chills. Patient denies pain at this time. Patient states she needs a note to return to work.. 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 - Infectious Disease History:: Denies. - Social history:: Smoking status: Patient/guardian denies using tobacco, Stopped _ months ago .25. ROS: 18:10 Constitutional: Negative for fever, and chills. Cardiovascular: Negative for chest ms3 pain, and palpitations. 18:10 Abdomen/GI: Negative for abdominal pain, nausea, vomiting, diarrhea, and constipation, MS/Extremity: Negative for injury and deformity, Skin: Negative for injury, rash, and discoloration, 18:10 ENT: Positive for sinus congestion, 18:10 Respiratory: Positive for cough, Exam: 18:10 Constitutional: This is a well developed, well nourished patient who is awake, alert, ms3 and in no acute distress. Cardiovascular: Regular rate and rhythm with a normal S1 and S2. No gallops, murmurs, or rubs. Normal PMI, no JVD. No pulse deficits. Respiratory: Lungs have equal breath sounds bilaterally, clear to auscultation and percussion. No rales, rhonchi or wheezes noted. No increased work of breathing, no retractions or nasal flaring. Abdomen/GI: Soft, non-tender, with normal bowel sounds. No distension or tympany. No guarding or rebound. No evidence of tenderness throughout. Skin: Warm, dry with normal turgor. Normal color with no rashes, no lesions, and no evidence of cellulitis. MS/ Extremity: Pulses equal, no cyanosis. Neurovascular intact. Full, normal range of motion. Vital Signs: 12:57 Weight 89.81 kg; Height 5 ft. 4 in. ; Pain 2/10; ss 13:03 BP 136 / 83; Pulse 88; Resp 14; Temp 97.5(TE); Pulse Ox 100% ; ss 12:57 Body Mass Index 33.99 (89.81 kg, 162.56 cm) ss 12:57 Pain Scale: Adult ss MDM: 13:42 Medical Screening Exam initiated ms3 18:10 Differential diagnosis: flu, URI, COVID. Data reviewed: vital signs, nurses notes, lab ms3 test result(s), and as a result, I will discharge patient. Special discussion: I discussed with the patient/guardian in detail that at this point there is no indication for admission to the hospital. It is understood, however, that if the symptoms persist or worsen the patient needs to return immediately for re-evaluation. ED course: Discussed negative flu and COVID results with patient. Patient to follow-up with primary care physician in 2 to 3 days. All questions were answered. Return precautions were discussed include worsening symptoms, or any other concerns . 04/15 13:17 Order name: COVID-19 Ag + Flu A+B Ag; Complete Time: 15:00 ms3 Administered Medications: No medications were administered Disposition Summary: 04/15/25 15:18 Discharge Ordered Notes: Location: Home ms3 Condition: Stable ms3 Diagnosis - Acute upper respiratory infection, unspecified ms3 Followup: ms3 - With: Caio Pillai DO - When: 2 - 3 days - Reason: Recheck today's complaints Discharge Instructions: - Discharge Summary Sheet ms3 - Upper Respiratory Infection, Adult ms3 Forms: - Medication Reconciliation Form ms3 - Antibiotic Education ms3 - Prescription Opioid Use ms3 - Patient Portal Instructions ms3 - Leadership Thank You Letter ms3 Prescriptions: - Claritin 10 mg Oral Tablet - take 1 tablet ORAL route once daily As needed; 30 tablet; Refills: 0, Product ms3 Selection Permitted - benzonatate 200 mg Oral capsule - take 1 capsule ORAL route 3 times per day as needed; 20 capsule; Refills: 0, ms3 Product Selection Permitted Signatures: Dispatcher [employer] Lupe Hudson, RN RN ss Enoch Marroquin, DO KONG ms3 Marichuy King RN RN af3
[2025-04-15 15:33] VITALS: BP 136/83; TEMP 97.5; O2SAT 100
== END 2025-04-15 15:26 | disposition home or self-care (01) ==
LOC: ER 12:47
DX: J06.9 Acute upper respiratory infection, unspecified (principal); Z11.52 Encounter for screening for COVID-19; Z87.891 Personal history of nicotine dependence
CPT/HCPCS: 36415; 87428; 99283